=== PATIENT | female | born 1970 | race Caucasian/White ===

== ENCOUNTER 2020-04-04 14:28 | Outpatient (CLI) | payer BC, SELFPAY ==
--- NOTE | ~2020-04-04 | US_ITS ---
EXAMINATION: US pelvic complete w TV DATE: 04/04/2020 14:58 INDICATION: Ovarian cysts Comparison:10/14/2015 TECHNIQUE: Multiple transabdominal and endovaginal sonographic images of the pelvis performed. FINDINGS: The uterus measures 6.3 x 2.9 x 3.6 cm. A small 3 mm cyst is identified adjacent to the end ometrium. The endometrial complex measures 4 mm. The right ovary measures 2.5 x 1.6 x 1.7 cm and the left ovary measures 1.9 x 1.4 x 1.2 cm. There ar e small follicles in each ovary. There is no free fluid in the pelvis. There are no abnormal masses seen on either side. IMPRESSION: 1. Unremarkable pelvic ultrasound. Reviewed, dictated and finalized at location A.
== END 2020-04-04 14:29 | disposition home or self-care (01) ==
LOC: CHSIMG 14:29
PROVIDERS: PCP Internal Medicine; Visit Provider Obstetrics & Gynecology
DX: N83.209 Unspecified ovarian cyst, unspecified side (principal)
CPT/HCPCS: 76830; 76856

== ENCOUNTER 2021-04-27 14:46 | Outpatient (CLI) | payer BC, SELFPAY ==
--- NOTE | ~2021-04-27 | MM_ITS ---
EXAMINATION: MM screening ulises BI w todd HISTORY: Screening mammogram TECHNIQUE: Craniocaudal and mediolateral oblique 3-D tomosynthesis images were obtained and synthetic 2-D images were generated. CAD analysis was submitted and interpreted. COMPARISON: 10/08/2018, 08/07/2017 bilateral digital screening mammogram examinations BREAST PARENCHYMAL COMPOSITION: There are scattered areas of fibroglandular density. FINDINGS: There is no evidence of suspicious mass, calcification, or architectural distortion to sugg est malignancy in either breast. There has been no suspicious interval change. IMPRESSION: 1. No mammographic evidence of malignancy. 2. Recommend routine screening mammography in one year. BI-RADS Category 1: Negative Reviewed, dictated and finalized at location A.
== END 2021-04-27 14:47 | disposition home or self-care (01) ==
LOC: CHSIMG 14:48
PROVIDERS: PCP Internal Medicine; Visit Provider Obstetrics & Gynecology
DX: Z12.31 Encounter for screening mammogram for malignant neoplasm of breast (principal)
CPT/HCPCS: 77063; 77067

== ENCOUNTER 2021-11-30 02:40 | Day surgery (SDC) | payer BC, SELFPAY ==
[2021-11-15 12:18] VITALS: BMI 21.4
--- NOTE | 2021-11-29 13:43 | WPDANESEPP ---
Anes - Eval Pre Procedure Procedure: Operation Date: 11/30/21 10:30 Proposed Procedures p Screening Colonoscopy - Jordi Dailey MD Date/Time: 11/29/21 13:43 Pre Op Diagnosis: neoplasm screening Patient Data Age: 51 Gender: F Height: 1.75 m Weight: 66 kg Allergies Allergy/AdvReac Type Severity Reaction Status Date / Time No Known Allergies Allergy Verified 11/15/21 12:28 Home Medications Medication Instructions Recorded Confirmed Type No Home Medications 11/15/21 11/15/21 History Patient hx anesthesia problems: none Family hx anesthesia problems: none Results Review: All pre-operative results and documents have been reviewed as part of the pre-operative evaluation. PMFSH Social History Social History Smoking status: Never smoker Alcohol intake: current Drinks per week: 10 Substance use type: does not use Living arrangements: with family Spiritual care concerns: No Exam Day of Procedure 11/29/21 13:43
--- NOTE | 2021-11-29 15:25 | PM.HPGS ---
History of Present Illness History of Present Illness Consent: Risks, benefits, and alternatives have been discussed and questions answered. Patient agrees to proceed with procedure. Chief complaint: neoplasm screening Narrative: Naina Lerma is a 51 year old female Referred for colon cancer screening. Review of Systems Review of Systems: All systems reviewed & are unremarkable except as noted in HPI and below PMFSH Social History Social History Smoking status: Never smoker Alcohol intake: current Drinks per week: 10 Substance use type: does not use Living arrangements: with family Spiritual care concerns: No Meds Home Medications and Allergies Home Medications Medication Instructions Recorded Confirmed Type No Home Medications 11/15/21 11/30/21 History Allergies Allergy/AdvReac Type Severity Reaction Status Date / Time No Known Allergies Allergy Verified 11/30/21 09:25 Exam Resp: Auscultation: clear to auscultation bilaterally Cardio: Rate: regular rate Rhythm: regular rhythm GI: GI Palp: Yes Soft to palpation and No Tenderness to palpation present (GI) Assessment and Plan Assessment and plan (1) Colon cancer screening: Code(s): Z12.11 - Encounter for screening for malignant neoplasm of colon Status: Acute Assessment and Plan: Colonoscopy with possible biopsy or polypectomy or cautery or injection of substances.
[2021-11-30 09:27] VITALS: BP 143/72; PULSE 66; RESP 16; TEMP 36.3; O2SAT 100
[2021-11-30] MEDS: LACTATED RINGERS 1,000 ML 150 ML IV CONT (09:37)
--- NOTE | 2021-11-30 09:52 | WPDANESEFPP ---
Anes - Eval Final PreProcedure Day of Procedure 11/30/21 09:52 Patient weight: overweight Heart: regular rate and rhythm Lungs: clear to auscultation Airway: Mallampati scale class 1 Neurological: alert and oriented Last oral intake: >/= 8 hours ASA classification: II Emergent: no Anesthetic plan: proceed Anesthesia type and monitoring: general GIVS and standard monitoring Results Review: All pre-operative results and documents have been reviewed as part of the pre-operative evaluation. Informed Consent: The patient's anesthetic plan and its attendant risks and benefits were discussed with the patient/family/POA. Questions were solicited and answers provided to the satisfaction of the patient/family/POA.
[2021-11-30 10:48] VITALS: BP 112/83; PULSE 69; RESP 19; O2SAT 100
[2021-11-30 10:58] VITALS: BP 140/82; PULSE 63; RESP 17; O2SAT 100
[2021-11-30 11:08] VITALS: BP 143/81; PULSE 57; RESP 15; O2SAT 100
== END 2021-11-30 11:10 | disposition home or self-care (01) ==
PROVIDERS: PCP Internal Medicine; Visit Provider Internal Medicine Gastroenterology
PROC: 0DJD8ZZ Inspection of Lower Intestinal Tract, Via Natural or Artificial Opening Endoscopic (ICD-10-PCS; CPT 45378; principal; 2021-11-30 10:30)
DX: Z12.11 Encounter for screening for malignant neoplasm of colon (principal)
CPT/HCPCS: 45378; J2704; J7120

== ENCOUNTER 2022-05-02 07:49 | Outpatient (CLI) | payer BC, SELFPAY ==
--- NOTE | ~2022-05-02 | DEXA_ITS ---
Bone Density Report Name: ASH TATUM Age: 51 Sex: Female Ethnicity: White Date of : 1970 Indication: postmenopausal; screening for osteoporosis; Referring Provider: Rissa, Chelita Study: Bone densitometry was performed. Exam Date: May 02, 2022 Accession number: [id number] Bone Density: Region BMD T-score Z-score Classification AP Spine(L1-L4) 0.977 -0.6 0.2 Normal Femoral Neck (Left) 0.886 0.3 1.2 Normal Total Hip (Left) 0.990 0.4 0.9 Normal Femoral Neck (Right) 0.941 0.8 1.7 Normal Total Hip (Right) 1.008 0.5 1.1 Normal Femoral Neck Mean 0.914 0.6 1.4 Normal Total Hip Mean 0.999 0.5 1.0 Normal World Health Organization criteria for BMD impression classify patients as: Normal (T-score at or above -1.0), Osteopenia (T-score between -1.0 and -2.5), or Osteoporosis (T-score at or below -2.5). 10-year Fracture Risk: FRAX not reported because: All T-scores for Spine Total, Hip Total, Femoral Neck at or above -1.0 Clinical Information Provided by Patient: Menopause Age: 50 No regular weight bearing exercise Does not regularly consume dairy products Onset of menses at age 13 Number of children 0 Impression: The patient has normal bone mass. Discussion: BONE DENSITY IS ABOVE THE MINIMUM DESIRABLE LEVEL AT ALL SKELETAL SITES TESTED. This patient?s bone mineral density is above the minimum desirable level (T-score -1.0 or better) at all sites measured. The patient should follow a healthful lifestyle (good nutrition with adequate calcium and vitamin D, and appropriate weight-bearing exercise). Follow-Up: Consider repeating this study in 5 years or sooner if there is some new clinical indication. Reported by: Dr. Vick Brown on 05/02/2022 8:33:00 AM. Reviewed, dictated and finalized at location APreeti EDWARDS
--- NOTE | ~2022-05-02 | MM_ITS ---
EXAMINATION: MM screening ulises BI w todd HISTORY: Screening TECHNIQUE: Craniocaudal and mediolateral oblique 3-D tomosynthesis images were obtained and synthetic 2-D images were generated. CAD analysis was submitted and interpreted. COMPARISON: Comparison to multiple prior studies sequentially, with oldest reviewed study dated 05/2013. BREAST PARENCHYMAL COMPOSITION: Breast composed of scattered areas of fibroglandular density FINDINGS: There is a focal left breast asymmetry laterally and anteriorly on CC view. The right breas t is stable without evidence for malignancy. IMPRESSION: 1. Focal left breast asymmetry laterally. 2. Additional mammographic views and possible breast ultrasound are recommended. BI-RADS Category 0: Incomplete: Needs additional imaging evaluation. Reviewed, dictated and finalized at location A. IMPRESSION: 1. Focal left breast asymmetry laterally. 2. Additional mammographic views and possible breast ultrasound are recommended . BI-RADS Category 0: Incomplete: Needs additional imaging evaluation.
== END 2022-05-02 07:50 | disposition home or self-care (01) ==
LOC: CHSIMG 07:52
PROVIDERS: PCP Internal Medicine; Visit Provider Nurse Practitioner
DX: Z12.31 Encounter for screening mammogram for malignant neoplasm of breast (principal); Z78.0 Asymptomatic menopausal state
CPT/HCPCS: 77063; 77067; 77080

== ENCOUNTER 2022-05-06 09:21 | Outpatient (CLI) | payer BC, SELFPAY ==
--- NOTE | ~2022-05-06 | MM_ITS ---
EXAMINATION: MM diagnostic ulises LT w todd HISTORY: Left breast asymmetry on screening mammogram TECHNIQUE: Additional 3-D tomosynthesis images of the left breast were performed and synthetic 2-D im ages were generated. CAD analysis was submitted and interpreted. COMPARISON: 05/02/2022, 04/27/2021, 10/08/2018 FINDINGS: There is a return to baseline fibroglandular appearance with spot compression of the left b reast in the area questioned on screening mammogram. IMPRESSION: 1. No mammographic evidence of malignancy. 2. Recommend routine screening mammography in one year. BI-RADS Category 1: Negative Reviewed, dictated and finalized at location A.
== END 2022-05-06 09:22 | disposition home or self-care (01) ==
LOC: CHSIMG 09:21
PROVIDERS: PCP Internal Medicine; Visit Provider Internal Medicine
DX: R92.8 Other abnormal and inconclusive findings on diagnostic imaging of breast (principal)
CPT/HCPCS: 77061; 77065; G0279

== ENCOUNTER 2023-04-16 06:55 | Outpatient (CLI) | payer BC, SELFPAY ==
[2023-04-16 07:09] LABS: Basophils Absolute Auto 0.03 K/mm3 (0.00-0.10); Basophils Percent Auto 0.7 % (0.0-1.0); Eosinophils Absolute Auto 0.12 K/mm3 (0.02-0.50); Eosinophils Percent Auto 2.7 % (1.0-6.0); Hematocrit 40.3 % (35.0-49.0); Hemoglobin 13.7 g/dL (12.0-15.0); Immature Granulocyte Absolute 0.01 K/mm3 (0.00-0.00); Immature Granulocyte Percent A 0.2 % (0.0-0.0); Lymphocytes Absolute Auto 1.65 K/mm3 (1.10-4.50); Lymphocytes Percent Auto 37.8 % (18.0-42.0); Mean Corpuscular Hemoglobin 32.8 pg (27.0-31.0); Mean Corpuscular Volume 96.4 fL (78.0-102.0); Monocytes Absolute Auto 0.36 K/mm3 (0.10-0.90); Monocytes Percent Auto 8.2 % (2.0-11.0); Neutrophils Absolute Auto 2.2 K/mm3 (1.7-7.2); Neutrophils Percent Auto 50.4 % (50.0-70.0); Platelet Count Result 289 K/mm3 (150-420); Red Blood Count 4.18 M/mm3 (4.20-5.40); Red Cell Distribution Width 12.4 % (11.6-14.4); White Blood Count 4.4 K/mm3 (4.8-10.8)
[2023-04-16 07:17] LABS: Appearance Urine Clear (Clear); Bilirubin Urine Negative (Negative); Blood Urine Negative (Negative); Color Urine Light Yellow (Yellow); Glucose Urine UA Negative (Negative); Ketones Urine Negative (Negative); Leukocyte Esterase Ur Negative LEU/UL (Negative); Nitrate Urine Negative (Negative); Protein Urine Negative (Negative); Specific Grav Ur 1.015 (1.010-1.020); Urobilinogen Urine 0.2 mg/dL (0.2-1.0)
[2023-04-16 07:26] LABS: Add Urine Microscopic? NO
[2023-04-16 08:22] LABS: Alanine Aminotransferase 29 U/L (14-59); Albumin Level 3.9 g/dL (3.4-5.0); Alkaline Phosphatase 67 U/L (46-116); Anion Gap 8 mmol/L (8-16); Aspartate Amino Transferase 17 U/L (15-37); Bilirubin,Total 0.6 mg/dL (0.00-1.00); Blood Urea Nitrogen 14 mg/dL (7-18); Calcium 9.4 mg/dL (8.5-10.1); Carbon Dioxide 29 mmol/L (21-32); Chloride 105 mmol/L (98-108); Cholesterol 219 mg/dL (0-200); Estimated Glomerular Filt Rate > 60; Free T4 Free Thyroxine 0.79 ng/dL (0.76-1.46); Glucose 85 mg/dL (70-99); HDL Direct 88 mg/dL (40-60); LDL Cholesterol Calculated 118 mg/dL (<130); Osmolality Calculated 293 mOsm/kg (285-295); Potassium 4.7 mmol/L (3.5-5.1); Sodium 142 mmol/L (136-145); Thyroid Stimulating Hormone 2.99 uIU/mL (0.36-3.74); Total Protein 7.3 g/dL (6.4-8.2); Triglycerides 63 mg/dL (0-150)
== END 2023-04-16 06:56 | disposition home or self-care (01) ==
LOC: CHSLAB 06:58
PROVIDERS: PCP Internal Medicine; Visit Provider Nurse Practitioner Family
DX: Z00.00 Encounter for general adult medical examination without abnormal findings (principal)
CPT/HCPCS: 36415; 80053; 80061; 81003; 84439; 84443; 85025

== ENCOUNTER 2023-05-15 12:04 | Outpatient (CLI) | payer BC, SELFPAY ==
--- NOTE | ~2023-05-15 | MM_ITS ---
EXAMINATION: MM screening [facility] BI w todd HISTORY: Screening TECHNIQUE: Craniocaudal and mediolateral oblique 3-D tomosynthesis images were obtained and synthetic 2-D images were generated. CAD analysis was submitted and interpreted. COMPARISON: Comparison to multiple prior studies sequentially, with oldest reviewed study dated 01/2016. BREAST PARENCHYMAL COMPOSITION: There are scattered areas of fibroglandular density. FINDINGS: There is no evidence of suspicious mass, calcification, or architectural distortion to sugg est malignancy in either breast. There has been no suspicious interval change. IMPRESSION: 1. No mammographic evidence of malignancy. 2. Recommend routine screening mammography in one year. BI-RADS Category 1: Negative Reviewed, dictated and finalized at location A.
== END 2023-05-15 12:05 | disposition home or self-care (01) ==
LOC: CHSIMG 12:06
PROVIDERS: PCP Obstetrics & Gynecology Gynecology; Visit Provider Internal Medicine
DX: Z12.31 Encounter for screening mammogram for malignant neoplasm of breast (principal)
CPT/HCPCS: 77063; 77067

== ENCOUNTER 2024-05-17 14:43 | Outpatient (CLI) | payer BC, SELFPAY ==
--- NOTE | ~2024-05-17 | MM_ITS ---
EXAMINATION: MM screening ulises BI w todd HISTORY: Screening TECHNIQUE: Craniocaudal and mediolateral oblique 3-D tomosynthesis images were obtained and synthetic 2-D images were generated. CAD analysis was submitted and interpreted. COMPARISON: Comparison to multiple prior studies sequentially, with oldest reviewed study dated 05/2017. BREAST PARENCHYMAL COMPOSITION: Not dense: There are scattered areas of fibroglandular density. FINDINGS: There is no evidence of suspicious mass, calcification, or architectural distortion to sugg est malignancy in either breast. There has been no suspicious interval change. IMPRESSION: 1. No mammographic evidence of malignancy. 2. Recommend routine screening mammography in one year. BI-RADS Category 1: Negative Reviewed, dictated and finalized at location B.
== END 2024-05-17 14:44 | disposition home or self-care (01) ==
PROVIDERS: PCP Internal Medicine; Visit Provider Obstetrics & Gynecology Gynecology
DX: Z12.31 Encounter for screening mammogram for malignant neoplasm of breast (principal)
CPT/HCPCS: 77063; 77067

== ENCOUNTER 2025-05-19 14:10 | Outpatient (CLI) | payer BC, SELFPAY ==
--- NOTE | ~2025-05-19 | MM_ITS ---
EXAMINATION: MM screening [facility] BI w todd HISTORY: Screening mammogram TECHNIQUE: Craniocaudal and mediolateral oblique 3-D tomosynthesis images were obtained and synthetic 2-D images were generated. CAD analysis was submitted and interpreted. COMPARISON: 05/17/2024, 05/15/2023, 05/06/2022 BREAST PARENCHYMAL COMPOSITION:Not Dense. There are scattered areas of fibroglandular density. FINDINGS: No suspicious mass, calcification, or architectural distortion are identified in either breast to suggest malignancy. There has been no suspicious interval change. IMPRESSION: No mammographic evidence of malignancy. Recommend routine screening mammography in one year. BI-RADS Category 1: Negative Reviewed, dictated and finalized at location .
== END 2025-05-19 14:11 | disposition home or self-care (01) ==
PROVIDERS: PCP Internal Medicine; Visit Provider Nurse Practitioner
DX: Z12.31 Encounter for screening mammogram for malignant neoplasm of breast (principal)
CPT/HCPCS: 77063; 77067